=== PATIENT | male | born 1970 | race African-American/Black ===

== ENCOUNTER 2018-09-20 19:34 | Inpatient (IN) ==
[2018-09-20] MEDS ORDERED: SODIUM CHLORIDE 0.9% 500 ML IV STA (19:59)
[2018-09-20 20:46] LABS: Basophils % 0.3 % (0.0-0.8); Eosinophils # 0.1 10*3/uL (0.0-0.87); Eosinophils % 0.8 % (0.00-10.9); Hemoglobin 13.4 GM/DL (14.0-18.0); Immature Granulocytes % 0.6 %; Immature Granulocytes Absolute 0.07 #; Lymphocytes % 16.9 % (21.2-54.2); Mean Corpuscular HGB Conc 33.5 GM/DL (32-36); Mean Corpuscular Hemoglobin 29 PG (27-34); Mean Corpuscular Volume 85.8 FL (87-102); Monocytes # 0.8 10*3/uL (0.11-0.8); Monocytes % 6.5 % (1.7-12.7); Neutrophils # 8.9 10*3/uL (1.4-7.4); Neutrophils % 74.9 % (38.7-73.9); Platelet Count 277 T/CUMM (130-400); Red Blood Count 4.66 MC/CUMM (3.8-5.5); Red Cell Distribution Width 13.1 % (9.3-17.3); White Blood Count 11.8 T/CUMM (4-12)
[2018-09-20 21:08] LABS: Alanine Aminotransferase 46 U/L (16-61); Albumin 3.6 G/DL (3.4-5.0); Alkaline Phosphatase 80 U/L (45-117); Aspartate Amino Transferase 95 U/L (0-37); Bilirubin,Total < 0.39 MG/DL (0.2-1.0); Blood Urea Nitrogen 9 MG/DL (7-18); Calcium 9.1 MG/DL (8.5-10.1); Glucose 137 MG/DL (74-106); Osmolality,Calculated 275.7 MOS/KG (273-304); Potassium 3.8 MMOL/L (3.5-5.1); Sodium 138 MMOL/L (136-145); Total Protein 8.2 G/DL (6.4-8.3); Troponin I 0.036 NG/ML (0.00-0.045)
[2018-09-20 21:48] LABS: Apearance,Urine CLEAR (Clear); Bacteria,Urine Occasional /HPF (Few); Bilirubin,Urine Negative (Negative); Blood, Urine Small mg/dL (Negative); Glucose,Urine (UA) Negative (Negative); Ketones,Urine Negative (Negative); Mucus,Urine Occasional /LPF (Occasional); Nitrite,Urine Negative (Negative); Protein,Urine 100 MG/DL; RBC,Urine 2 /HPF (0-4); Squamous Epithelial Cell,Urine Occasional /HPF (0-10); Urine Color Yellow (Yellow); Urine Specific Gravity 1.011 (1.001-1.035); Urine Urobilinogen < 2.0 EU/DL (0.2-1.0); WBC,Urine 2 /HPF (0-6)
[2018-09-20] MEDS ORDERED: ONDANSETRON 4 MG/2 ML VIAL IV STA (21:59)
[2018-09-20] MEDS ORDERED: HYDROmorphone 2 MG/1 ML VIAL IV ONE (21:59)
[2018-09-20 22:15] LABS: Barbiturates Screen,Urine Negative (Negative); Benzodiazepines Screen,Urine Negative (Negative); Cannabinoid Screen,Urine Negative (Negative); Opiate Screen,Urine Negative (Negative); Phencyclidine Screen,Urine Negative (Negative)
[2018-09-20] MEDS ORDERED: ONDANSETRON 4 MG/2 ML VIAL IV PRN (23:10)
[2018-09-20] MEDS ORDERED: ENOXAPARIN 40 MG/0.4 ML SYRINGE SUBCUT SCH (23:30)
[2018-09-21] MEDS ORDERED: ENOXAPARIN 40 MG/0.4 ML SYRINGE ONE (00:55)
[2018-09-21] MEDS: ACETAMINOPHEN 325 MG TABLET PO PRN (01:15)
[2018-09-21] MEDS: SODIUM CHLORIDE 0.9% 1,000 ML IV SCH ×3 (01:15→21:10)
[2018-09-21 04:04] LABS: Basophils % 0.1 % (0.0-0.8); Eosinophils % 0.2 % (0.00-10.9); Hematocrit 38.9 VOL% (42.0-52.0); Immature Granulocytes % 0.3 %; Immature Granulocytes Absolute 0.05 #; Lymphocytes # 2.1 10*3/uL (1.4-4.0); Lymphocytes % 14.6 % (21.2-54.2); Mean Corpuscular HGB Conc 33.4 GM/DL (32-36); Mean Corpuscular Hemoglobin 29 PG (27-34); Mean Corpuscular Volume 87.2 FL (87-102); Mean Platelet Volume 9.8 FL (9.6-12.0); Monocytes # 1.3 10*3/uL (0.11-0.8); Monocytes % 8.8 % (1.7-12.7); Neutrophils # 10.9 10*3/uL (1.4-7.4); Platelet Count 270 T/CUMM (130-400); Red Blood Count 4.46 MC/CUMM (3.8-5.5); Red Cell Distribution Width 13.3 % (9.3-17.3); White Blood Count 14.4 T/CUMM (4-12)
[2018-09-21 04:24] LABS: % Iron Saturation 12.4 % (18-50); Ferritin 263.8 ng/ml (26-388)
[2018-09-21 04:31] LABS: Calcium 8.8 MG/DL (8.5-10.1); Osmolality,Calculated 274.7 MOS/KG (273-304); Potassium 4.4 MMOL/L (3.5-5.1); Risk Ratio 4.66; Thyroid Stimulating Hormone 0.573 uIU/ml (0.358-3.74); VLDL CHOLESTEROL 24.4 MG/DL
[2018-09-21 04:40] LABS: Folate 9.1 NG/ML (5.4-24.0); Vitamin B12 854 PG/ML (211-911)
[2018-09-21 05:16] LABS: Sedimentation Rate-Westergren 38 MM/HR (0-15)
[2018-09-21] MEDS: DOCUSATE SODIUM 100 MG CAPSULE PO SCH ×2 (08:39→21:10)
[2018-09-21] MEDS: oxyCODONE ER 10 MG TABLET PO PRN ×2 (09:29→21:10)
[2018-09-21 10:20] LABS: Hemoglobin A1 (Alkaline) 60.8 % (96.5-98.5); Hemoglobin A2 (Alkaline) 3.1 % (1.5-3.5)
[2018-09-21 10:21] LABS: Hemoglobin S (Alkaline) 36.1 %
[2018-09-22 05:31] LABS: Basophils % 0.1 % (0.0-0.8); Eosinophils % 0.2 % (0.00-10.9); Hematocrit 38.2 VOL% (42.0-52.0); Hemoglobin 12.7 GM/DL (14.0-18.0); Immature Granulocytes % 0.3 %; Immature Granulocytes Absolute 0.04 #; Lymphocytes # 2.1 10*3/uL (1.4-4.0); Lymphocytes % 17.5 % (21.2-54.2); Mean Corpuscular HGB Conc 33.2 GM/DL (32-36); Mean Corpuscular Hemoglobin 29 PG (27-34); Mean Corpuscular Volume 86.4 FL (87-102); Mean Platelet Volume 10.3 FL (9.6-12.0); Monocytes # 0.9 10*3/uL (0.11-0.8); Monocytes % 7.5 % (1.7-12.7); Neutrophils # 9.1 10*3/uL (1.4-7.4); Neutrophils % 74.4 % (38.7-73.9); Platelet Count 281 T/CUMM (130-400); Red Blood Count 4.42 MC/CUMM (3.8-5.5); Red Cell Distribution Width 13.2 % (9.3-17.3); White Blood Count 12.2 T/CUMM (4-12)
[2018-09-22 05:50] LABS: Calcium 8.8 MG/DL (8.5-10.1); Osmolality,Calculated 269.8 MOS/KG (273-304)
[2018-09-22] MEDS: DOCUSATE SODIUM 100 MG CAPSULE PO SCH ×2 (08:54→20:29)
[2018-09-22] MEDS: SODIUM CHLORIDE 0.9% 1,000 ML IV SCH (20:30)
[2018-09-22] MEDS: ACETAMINOPHEN 325 MG TABLET PO PRN (23:33)
[2018-09-23] MEDS: SODIUM CHLORIDE 0.9% 1,000 ML IV SCH ×3 (05:15→23:35)
[2018-09-23] MEDS: ACETAMINOPHEN 325 MG TABLET PO PRN (05:50)
[2018-09-23] MEDS ORDERED: LEVOFLOXACIN INJ 500 MG in PREMIX 1 EACH IV SCH (07:30)
[2018-09-23 08:17] LABS: Apearance,Urine CLEAR (Clear); Bilirubin,Urine Negative (Negative); Blood, Urine Negative (Negative); Glucose,Urine (UA) Negative (Negative); Ketones,Urine Negative (Negative); Nitrite,Urine Negative (Negative); Protein,Urine 30 MG/DL; Urine Color Yellow (Yellow); Urine Specific Gravity 1.013 (1.001-1.035); Urine Urobilinogen < 2.0 EU/DL (0.2-1.0); WBC,Urine 1 /HPF (0-6)
[2018-09-23] MEDS: DOCUSATE SODIUM 100 MG CAPSULE PO SCH ×2 (09:50→23:34)
[2018-09-23] MEDS: AZITHROMYCIN 250 MG TABLET PO SCH (17:06)
[2018-09-23] MEDS: levETIRAcetam 500 MG TABLET PO SCH (23:35)
[2018-09-24] MEDS: ACETAMINOPHEN 325 MG TABLET PO PRN ×2 (01:35→19:10)
[2018-09-24 03:41] LABS: Basophils % 0.2 % (0.0-0.8); Eosinophils # 0.1 10*3/uL (0.0-0.87); Eosinophils % 0.4 % (0.00-10.9); Hematocrit 40.3 VOL% (42.0-52.0); Hemoglobin 13.8 GM/DL (14.0-18.0); Immature Granulocytes % 0.5 %; Immature Granulocytes Absolute 0.06 #; Lymphocytes # 2.6 10*3/uL (1.4-4.0); Mean Corpuscular HGB Conc 34.2 GM/DL (32-36); Mean Corpuscular Hemoglobin 29 PG (27-34); Mean Corpuscular Volume 84.3 FL (87-102); Mean Platelet Volume 9.7 FL (9.6-12.0); Monocytes # 1.2 10*3/uL (0.11-0.8); Monocytes % 9.4 % (1.7-12.7); Neutrophils # 9.1 10*3/uL (1.4-7.4); Neutrophils % 69.5 % (38.7-73.9); Platelet Count 344 T/CUMM (130-400); Red Blood Count 4.78 MC/CUMM (3.8-5.5); Red Cell Distribution Width 12.9 % (9.3-17.3)
[2018-09-24 04:04] LABS: Calcium 9.2 MG/DL (8.5-10.1); Osmolality,Calculated 267.2 MOS/KG (273-304); Potassium 3.5 MMOL/L (3.5-5.1)
[2018-09-24 11:08] LABS: Glucose,CSF 79 MG/DL (40-70)
[2018-09-24] MEDS: DOCUSATE SODIUM 100 MG CAPSULE PO SCH (11:43)
[2018-09-24] MEDS: levETIRAcetam 500 MG TABLET PO SCH (11:44)
[2018-09-24] MEDS: AZITHROMYCIN 250 MG TABLET PO SCH (11:44)
[2018-09-24] MEDS: cefTRIAXone 1,000 MG in SYRINGE 1 EACH IV SCH ×2 (11:50→14:11)
[2018-09-24 12:46] LABS: Lymphocytes,CSF 51 %; Monocytes,CSF 4 %; Neutrophils,CSF 44 %
[2018-09-24 12:54] LABS: Appearance,CSF Clear; Red Blood Cell,CSF 28 C/CUMM; White Blood Cell,CSF 244 C/CUMM
[2018-09-24] MEDS ORDERED: cefTRIAXone 1,000 MG VIAL IM SCH (13:30)
[2018-09-24] MEDS: SODIUM CHLORIDE 0.9% 1,000 ML IV SCH (14:10)
[2018-09-24] MEDS: ACYCLOVIR INJ 1,000 MG in SODIUM CHLORIDE 0.9% 250 ML IV SCH (14:21)
[2018-09-25] MEDS: ACETAMINOPHEN 325 MG TABLET PO PRN ×3 (01:34→18:25)
[2018-09-25] MEDS: levETIRAcetam 500 MG TABLET PO SCH ×3 (01:36→20:48)
[2018-09-25] MEDS: DOCUSATE SODIUM 100 MG CAPSULE PO SCH ×3 (01:36→20:49)
[2018-09-25] MEDS: SODIUM CHLORIDE 0.9% 1,000 ML IV SCH ×2 (01:36→06:25)
[2018-09-25] MEDS: ACYCLOVIR INJ 1,000 MG in SODIUM CHLORIDE 0.9% 250 ML IV SCH ×3 (04:03→20:49)
[2018-09-25] MEDS: AZITHROMYCIN 250 MG TABLET PO SCH (09:59)
[2018-09-26] MEDS: ACETAMINOPHEN 325 MG TABLET PO PRN ×4 (03:10→21:30)
[2018-09-26] MEDS: ACYCLOVIR INJ 1,000 MG in SODIUM CHLORIDE 0.9% 250 ML IV SCH (03:11)
[2018-09-26 06:25] LABS: Basophils % 0.3 % (0.0-0.8); Eosinophils # 0.1 10*3/uL (0.0-0.87); Eosinophils % 0.7 % (0.00-10.9); Hemoglobin 13.5 GM/DL (14.0-18.0); Immature Granulocytes % 0.4 %; Immature Granulocytes Absolute 0.05 #; Lymphocytes # 2.6 10*3/uL (1.4-4.0); Lymphocytes % 22.9 % (21.2-54.2); Mean Corpuscular HGB Conc 33.8 GM/DL (32-36); Mean Corpuscular Hemoglobin 28 PG (27-34); Mean Corpuscular Volume 83.5 FL (87-102); Mean Platelet Volume 9.4 FL (9.6-12.0); Monocytes # 1.1 10*3/uL (0.11-0.8); Monocytes % 9.5 % (1.7-12.7); Neutrophils # 7.4 10*3/uL (1.4-7.4); Neutrophils % 66.2 % (38.7-73.9); Platelet Count 340 T/CUMM (130-400); Red Blood Count 4.79 MC/CUMM (3.8-5.5); Red Cell Distribution Width 12.8 % (9.3-17.3); White Blood Count 11.2 T/CUMM (4-12)
[2018-09-26 06:41] LABS: Calcium 8.8 MG/DL (8.5-10.1); Osmolality,Calculated 267.2 MOS/KG (273-304); Potassium 3.6 MMOL/L (3.5-5.1)
[2018-09-26] MEDS: levETIRAcetam 500 MG TABLET PO SCH ×2 (09:01→21:26)
[2018-09-26] MEDS: DOCUSATE SODIUM 100 MG CAPSULE PO SCH ×2 (09:01→21:26)
[2018-09-26] MEDS: AZITHROMYCIN 250 MG TABLET PO SCH (09:01)
[2018-09-26] MEDS: SODIUM CHLORIDE 0.9% 1,000 ML IV SCH ×3 (09:02→21:31)
[2018-09-26] MEDS ORDERED: ACYCLOVIR INJ 750 MG in SODIUM CHLORIDE 0.9% 250 ML IV SCH (12:00)
[2018-09-26 17:17] LABS: HIV Antigen/Antibody Result Nonreactive (Nonreactive)
[2018-09-26 18:26] LABS: Apearance,Urine CLEAR (Clear); Bilirubin,Urine Negative (Negative); Blood, Urine Negative (Negative); Glucose,Urine (UA) Negative (Negative); Ketones,Urine Negative (Negative); Nitrite,Urine Negative (Negative); Protein,Urine Negative; Urine Color Straw (Yellow); Urine Specific Gravity 1.005 (1.001-1.035); Urine Urobilinogen < 2.0 EU/DL (0.2-1.0)
[2018-09-27] MEDS: levETIRAcetam 500 MG TABLET PO SCH (08:18)
[2018-09-27] MEDS: SODIUM CHLORIDE 0.9% 1,000 ML IV SCH (08:18)
[2018-09-27] MEDS: DOCUSATE SODIUM 100 MG CAPSULE PO SCH (08:18)
[2018-09-27] MEDS: ACETAMINOPHEN 325 MG TABLET PO PRN (08:21)
[2018-09-27 14:29] VITALS: BP 120/62
== END 2018-09-27 14:29 | disposition home or self-care (01) | DRG 75 ==
LOC: EDBD → EDUNIT# → N.EDINP 19:34 → N.ED 19:34 → N.TELES 09-21 00:17 → SUATTDRO 09-23 07:14 → N.5E 09-25 10:44
PROVIDERS: ADMIT Hospitalist; ATTEND Internal Medicine

== ENCOUNTER 2021-03-30 17:45 | Inpatient (IN) ==
[2021-03-30] MEDS ORDERED: DEXAMETHASONE 4 MG/1 ML VIAL IM STA (23:23)
[2021-03-30] MEDS ORDERED: ONDANSETRON 4 MG/2 ML VIAL IV STA (23:23)
[2021-03-30] MEDS ORDERED: cefTRIAXone 1,000 MG in SODIUM CHLORIDE 0.9% 100 ML IV STA (23:23)
[2021-03-30 23:36] LABS: Hematocrit 49.6 VOL% (42.0-52.0); Hemoglobin 16.4 GM/DL (14.0-18.0); Immature Granulocytes % 0.4 %; Immature Granulocytes Absolute 0.02 #; Lymphocytes # 1.8 10*3/uL (1.4-4.0); Mean Corpuscular HGB Conc 33.1 GM/DL (32-36); Mean Corpuscular Volume 86.3 FL (87-102); Mean Platelet Volume 10.3 FL (9.6-12.0); Monocytes % 6.8 % (1.7-12.7); Neutrophils % 58.8 % (38.7-73.9); Platelet Count 187 T/CUMM (130-400); Red Blood Count 5.75 MC/CUMM (3.8-5.5); Red Cell Distribution Width 14.1 % (9.3-17.3); White Blood Count 5.2 T/CUMM (4-12)
[2021-03-30 23:49] LABS: PT Patient Result 11.6 SECS (10.5-12.0)
[2021-03-30] MEDS ORDERED: SODIUM CHLORIDE 0.9% 500 ML IV STA (23:52)
[2021-03-30 23:57] LABS: Albumin 3.4 G/DL (3.4-5.0); Bilirubin,Total 0.7 MG/DL (0.20-1.00); Osmolality,Calculated 267.7 MOS/KG (273-304); Potassium 4.2 MMOL/L (3.5-5.1); Total Protein 7.6 G/DL (6.4-8.2)
[2021-03-31] MEDS ORDERED: ONDANSETRON 4 MG/2 ML VIAL IV PRN (01:54)
[2021-03-31] MEDS ORDERED: AZITHROMYCIN INJ 500 MG in SODIUM CHLORIDE 0.9% 250 ML IV ONE (01:54)
[2021-03-31] MEDS ORDERED: MELATONIN 3 MG TABLET PO PRN ×2 (01:54→12:05)
[2021-03-31] MEDS ORDERED: GLUCAGON 1 MG VIAL IM PRN (01:54)
[2021-03-31] MEDS ORDERED: DEXTROSE 50% 25 GM/50 ML VIAL IV PRN (01:54)
[2021-03-31] MEDS ORDERED: BISACODYL 5 MG TABLET PO PRN (01:54)
[2021-03-31] MEDS ORDERED: DOCUSATE SODIUM 100 MG CAPSULE PO PRN (01:54)
[2021-03-31] MEDS: ENOXAPARIN 40 MG/0.4 ML SYRINGE SUBCUT SCH (04:30)
[2021-03-31] MEDS: SODIUM CHLORIDE 0.9% 1,000 ML IV SCH ×2 (04:32→14:06)
[2021-03-31 07:23] LABS: Albumin 2.6 G/DL (3.4-5.0); Bilirubin,Total 0.4 MG/DL (0.20-1.00); Calcium 7.5 MG/DL (8.5-10.1); Osmolality,Calculated 275.5 MOS/KG (273-304); Potassium 4.7 MMOL/L (3.5-5.1); Total Protein 7.3 G/DL (6.4-8.2)
[2021-03-31] MEDS: INSULIN REGULAR 100 UNIT/ML SUBCUT SCH ×4 (08:06→22:57)
[2021-03-31] MEDS ORDERED: DEXAMETHASONE 4 MG/1 ML VIAL IV SCH (09:00)
[2021-03-31] MEDS ORDERED: ZINC GLUCONATE 50 MG TABLET PO SCH (09:00)
[2021-03-31] MEDS ORDERED: CHOLECALCIFEROL 1,000 UNIT TABLET PO SCH (09:00)
[2021-03-31] MEDS: FAMOTIDINE 20 MG TABLET PO SCH ×2 (09:06→22:58)
[2021-03-31] MEDS: ASCORBIC ACID 500 MG TABLET PO SCH ×2 (09:06→22:58)
[2021-03-31] MEDS: CETIRIZINE 10 MG TABLET PO SCH (09:06)
[2021-03-31] MEDS: IVERMECTIN 3 MG TABLET PO SCH (09:06)
[2021-03-31] MEDS: DEXAMETHASONE 4 MG/1 ML VIAL IV SCH ×3 (14:15→23:16)
[2021-03-31] MEDS: cefTRIAXone 1,000 MG in SODIUM CHLORIDE 0.9% 100 ML IV SCH (14:19)
[2021-03-31] MEDS: ALBUTEROL INHALER 18 GM INH SCH ×2 (14:37→22:59)
[2021-04-01] MEDS: ALBUTEROL INHALER 18 GM INH SCH ×4 (02:33→20:58)
[2021-04-01] MEDS: ENOXAPARIN 40 MG/0.4 ML SYRINGE SUBCUT SCH (03:00)
[2021-04-01] MEDS: DEXAMETHASONE 4 MG/1 ML VIAL IV SCH ×4 (03:05→20:59)
[2021-04-01] MEDS: SODIUM CHLORIDE 0.9% 1,000 ML IV SCH ×2 (03:15→14:07)
[2021-04-01 05:28] LABS: Basophils % 0.1 % (0.0-0.8); Hematocrit 42.4 VOL% (42.0-52.0); Hemoglobin 14.5 GM/DL (14.0-18.0); Immature Granulocytes % 0.4 %; Immature Granulocytes Absolute 0.03 #; Lymphocytes # 1.1 10*3/uL (1.4-4.0); Lymphocytes % 14.7 % (21.2-54.2); Mean Corpuscular HGB Conc 34.2 GM/DL (32-36); Mean Corpuscular Volume 85.8 FL (87-102); Mean Platelet Volume 10.9 FL (9.6-12.0); Monocytes % 5.4 % (1.7-12.7); Neutrophils % 79.4 % (38.7-73.9); Platelet Count 175 T/CUMM (130-400); Red Blood Count 4.94 MC/CUMM (3.8-5.5); Red Cell Distribution Width 14.1 % (9.3-17.3); White Blood Count 7.3 T/CUMM (4-12)
[2021-04-01 06:01] LABS: Albumin 2.5 G/DL (3.4-5.0); Bilirubin,Total 0.6 MG/DL (0.20-1.00); Calcium 7.7 MG/DL (8.5-10.1); Osmolality,Calculated 279.1 MOS/KG (273-304); Potassium 4.4 MMOL/L (3.5-5.1); Total Protein 6.9 G/DL (6.4-8.2)
[2021-04-01] MEDS ORDERED: AZITHROMYCIN 250 MG TABLET PO SCH (09:00)
[2021-04-01] MEDS: CHOLECALCIFEROL 5,000 UNIT TABLET PO SCH (10:50)
[2021-04-01] MEDS: ZINC GLUCONATE 50 MG TABLET PO SCH (10:51)
[2021-04-01] MEDS: FAMOTIDINE 20 MG TABLET PO SCH ×2 (10:51→20:59)
[2021-04-01] MEDS: INSULIN REGULAR 100 UNIT/ML SUBCUT SCH ×4 (10:52→20:58)
[2021-04-01] MEDS: ASCORBIC ACID 500 MG TABLET PO SCH ×2 (10:52→20:59)
[2021-04-01] MEDS: CETIRIZINE 10 MG TABLET PO SCH (10:53)
[2021-04-01] MEDS: cefTRIAXone 1,000 MG in SODIUM CHLORIDE 0.9% 100 ML IV SCH (14:08)
[2021-04-01] MEDS: AZITHROMYCIN INJ 500 MG in SODIUM CHLORIDE 0.9% 250 ML IV SCH (15:31)
[2021-04-01] MEDS: IVERMECTIN 3 MG TABLET PO SCH (18:23)
[2021-04-01 22:01] LABS: ABG Base Excess 0.2 MMOL/L (-2.5-2.5); ABG HCO3 24.4 MMOL/L (20-26); ABG PCO2 40.9 MM HG (35-48); ABG PH 7.395 (7.35-7.45); ABG PO2 65.9 MM HG (80-95); ABG TCO2 21.6 MMOL/L (23-27)
[2021-04-01] MEDS: ACETAMINOPHEN 325 MG TABLET PO PRN (23:59)
[2021-04-02] MEDS ORDERED: ASPIRIN 325 MG TABLET ONE (01:02)
[2021-04-02 01:42] LABS: Hematocrit 41.6 VOL% (42.0-52.0); Hemoglobin 13.9 GM/DL (14.0-18.0); Immature Granulocytes % 0.4 %; Immature Granulocytes Absolute 0.04 #; Lymphocytes # 0.9 10*3/uL (1.4-4.0); Lymphocytes % 7.9 % (21.2-54.2); Mean Corpuscular HGB Conc 33.4 GM/DL (32-36); Mean Corpuscular Volume 86.7 FL (87-102); Mean Platelet Volume 10.2 FL (9.6-12.0); Monocytes % 5.2 % (1.7-12.7); Neutrophils % 86.5 % (38.7-73.9); Platelet Count 204 T/CUMM (130-400); White Blood Count 10.7 T/CUMM (4-12)
[2021-04-02] MEDS: ZALEPLON 5 MG CAPSULE PO PRN ×2 (01:58→23:57)
[2021-04-02 02:04] LABS: Albumin 2.3 G/DL (3.4-5.0); Bilirubin,Total 0.4 MG/DL (0.20-1.00); Calcium 7.8 MG/DL (8.5-10.1); Ferritin 1217.3 ng/ml (26-388); Potassium 4.9 MMOL/L (3.5-5.1); Total Protein 6.6 G/DL (6.4-8.2)
[2021-04-02] MEDS: ALBUTEROL INHALER 18 GM INH SCH ×4 (02:12→19:52)
[2021-04-02] MEDS: DEXAMETHASONE 4 MG/1 ML VIAL IV SCH ×3 (04:00→15:53)
[2021-04-02] MEDS: SODIUM CHLORIDE 0.9% 1,000 ML IV SCH ×2 (04:46→15:33)
[2021-04-02 05:11] LABS: ABG Base Excess 0.7 MMOL/L (-2.5-2.5); ABG HCO3 25.9 MMOL/L (20-26); ABG Oxygen Saturation 92.4 % (95-100); ABG PCO2 43.3 MM HG (35-48); ABG PH 7.394 (7.35-7.45); ABG TCO2 27.2 MMOL/L (23-27)
[2021-04-02] MEDS: INSULIN REGULAR 100 UNIT/ML SUBCUT SCH ×4 (12:13→23:52)
[2021-04-02] MEDS: ENOXAPARIN 40 MG/0.4 ML SYRINGE SUBCUT SCH (12:45)
[2021-04-02] MEDS: FAMOTIDINE 20 MG TABLET PO SCH ×2 (12:49→21:54)
[2021-04-02] MEDS: ASCORBIC ACID 500 MG TABLET PO SCH ×2 (12:49→21:54)
[2021-04-02] MEDS: CETIRIZINE 10 MG TABLET PO SCH (12:50)
[2021-04-02] MEDS: AZITHROMYCIN INJ 500 MG in SODIUM CHLORIDE 0.9% 250 ML IV SCH (12:50)
[2021-04-02] MEDS: ZINC GLUCONATE 50 MG TABLET PO SCH (12:50)
[2021-04-02] MEDS: IVERMECTIN 3 MG TABLET PO SCH (15:53)
[2021-04-02] MEDS: CHOLECALCIFEROL 5,000 UNIT TABLET PO SCH (18:07)
[2021-04-02] MEDS: cefTRIAXone 1,000 MG in SODIUM CHLORIDE 0.9% 100 ML IV SCH (21:00)
[2021-04-03 00:49] LABS: ABG Oxygen Saturation 82.3 % (95-100); ABG PH 7.436 (7.35-7.45); ABG PO2 49.5 MM HG (80-95); ABG TCO2 26.2 MMOL/L (23-27)
[2021-04-03] MEDS: ALBUTEROL INHALER 18 GM INH SCH ×4 (01:17→19:35)
[2021-04-03] MEDS ORDERED: CLORAZEPATE 3.75 MG TABLET PO PRN (01:33)
[2021-04-03] MEDS: SODIUM CHLORIDE 0.9% 1,000 ML IV SCH ×3 (03:17→13:00)
[2021-04-03 07:03] LABS: Calcium 8.3 MG/DL (8.5-10.1); Ferritin 2166.5 ng/ml (26-388); Potassium 5.1 MMOL/L (3.5-5.1)
[2021-04-03] MEDS: INSULIN REGULAR 100 UNIT/ML SUBCUT SCH ×4 (09:47→17:23)
[2021-04-03] MEDS: ASCORBIC ACID 500 MG TABLET PO SCH ×2 (10:57→21:03)
[2021-04-03] MEDS: ENOXAPARIN 40 MG/0.4 ML SYRINGE SUBCUT SCH (10:57)
[2021-04-03] MEDS: CHOLECALCIFEROL 5,000 UNIT TABLET PO SCH (10:58)
[2021-04-03] MEDS ORDERED: methylPREDNISolone SOD SUC 125 MG/2 ML VIAL IV ONE (12:06)
[2021-04-03] MEDS: AZITHROMYCIN INJ 500 MG in SODIUM CHLORIDE 0.9% 250 ML IV SCH (13:00)
[2021-04-03] MEDS: IVERMECTIN 3 MG TABLET PO SCH (13:01)
[2021-04-03] MEDS ORDERED: LORazepam 2 MG/1 ML VIAL IV PRN (15:07)
[2021-04-03] MEDS ORDERED: LORazepam 2 MG/1 ML VIAL ONE (15:12)
[2021-04-03] MEDS: ZINC GLUCONATE 50 MG TABLET PO SCH (15:18)
[2021-04-03] MEDS: FAMOTIDINE 20 MG TABLET PO SCH ×2 (15:18→21:03)
[2021-04-03] MEDS: CETIRIZINE 10 MG TABLET PO SCH (15:19)
[2021-04-03] MEDS ORDERED: MORPHINE 2 MG/1 ML SYRINGE ONE (15:51)
[2021-04-03] MEDS ORDERED: MORPHINE 2 MG/1 ML SYRINGE IV ONE (15:52)
[2021-04-03 16:04] LABS: ABG Base Excess 1.6 MMOL/L (-2.5-2.5); ABG HCO3 25.3 MMOL/L (20-26); ABG Oxygen Saturation 78.5 % (95-100); ABG PCO2 42.2 MM HG (35-48); ABG PH 7.407 (7.35-7.45); ABG PO2 47.5 MM HG (80-95); ABG TCO2 22.7 MMOL/L (23-27)
[2021-04-03] MEDS ORDERED: ETOMIDATE 20 MG/10 ML VIAL IV ONE ×2 (16:26→16:36)
[2021-04-03] MEDS ORDERED: ROCURONIUM 100 MG/10 ML VIAL IV ONE ×2 (16:28→16:36)
[2021-04-03] MEDS ORDERED: LABETALOL 20 MG/4 ML SYRINGE IV ONE (16:52)
[2021-04-03] MEDS: methylPREDNISolone SOD SUC 125 MG/2 ML VIAL IV SCH (17:09)
[2021-04-03] MEDS: INSULIN GLARGINE 100 UNIT/ML SUBCUT SCH ×2 (17:14→21:04)
[2021-04-03] MEDS: ACETAMINOPHEN 325 MG TABLET PO PRN (17:14)
[2021-04-03 18:01] LABS: ABG Base Excess -0.3 MMOL/L (-2.5-2.5); ABG Oxygen Saturation 88.8 % (95-100); ABG PH 7.328 (7.35-7.45); ABG PO2 67.2 MM HG (80-95); ABG TCO2 23.1 MMOL/L (23-27)
[2021-04-03] MEDS: FUROSEMIDE 40 MG/4 ML VIAL IV SCH (18:03)
[2021-04-03] MEDS: fentaNYL INJ 1,250 MCG in SODIUM CHLORIDE 0.9% 225 ML IV PRN (19:35)
[2021-04-03] MEDS: MIDAZOLAM 100 MG in SODIUM CHLORIDE 0.9% 80 ML IV PRN (19:35)
[2021-04-03] MEDS: levETIRAcetam 250 MG TABLET PO SCH (21:03)
[2021-04-03] MEDS: cefTRIAXone 1,000 MG in SODIUM CHLORIDE 0.9% 100 ML IV SCH (21:55)
[2021-04-04] MEDS: fentaNYL INJ 1,250 MCG in SODIUM CHLORIDE 0.9% 225 ML IV PRN ×4 (00:20→19:40)
[2021-04-04] MEDS: methylPREDNISolone SOD SUC 125 MG/2 ML VIAL IV SCH ×4 (00:21→18:01)
[2021-04-04] MEDS: INSULIN REGULAR 100 UNIT/ML SUBCUT SCH ×4 (00:22→18:01)
[2021-04-04] MEDS: ALBUTEROL INHALER 18 GM INH SCH ×4 (00:22→18:02)
[2021-04-04 00:33] LABS: ABG Base Excess -1.2 MMOL/L (-2.5-2.5); ABG Oxygen Saturation 95.4 % (95-100); ABG PCO2 60.2 MM HG (35-48); ABG PH 7.269 (7.35-7.45); ABG PO2 92.6 MM HG (80-95); ABG TCO2 28.8 MMOL/L (23-27)
[2021-04-04] MEDS: MIDAZOLAM 100 MG in SODIUM CHLORIDE 0.9% 80 ML IV PRN ×2 (04:56→13:30)
[2021-04-04] MEDS: FUROSEMIDE 40 MG/4 ML VIAL IV SCH ×2 (05:04→21:08)
[2021-04-04 05:22] LABS: Basophils % 0.1 % (0.0-0.8); Hematocrit 38.2 VOL% (42.0-52.0); Hemoglobin 12.5 GM/DL (14.0-18.0); Immature Granulocytes % 1.3 %; Immature Granulocytes Absolute 0.17 #; Lymphocytes # 0.8 10*3/uL (1.4-4.0); Lymphocytes % 6.2 % (21.2-54.2); Mean Corpuscular HGB Conc 32.7 GM/DL (32-36); Mean Platelet Volume 10.5 FL (9.6-12.0); Monocytes % 4.9 % (1.7-12.7); Neutrophils % 87.5 % (38.7-73.9); Platelet Count 236 T/CUMM (130-400); Red Blood Count 4.29 MC/CUMM (3.8-5.5); Red Cell Distribution Width 14.6 % (9.3-17.3); White Blood Count 13.2 T/CUMM (4-12)
[2021-04-04 05:23] LABS: ABG HCO3 25.3 MMOL/L (20-26); ABG Oxygen Saturation 94.7 % (95-100); ABG PCO2 54.2 MM HG (35-48); ABG PH 7.287 (7.35-7.45)
[2021-04-04 05:56] LABS: Albumin 1.8 G/DL (3.4-5.0); Bilirubin,Direct 0.13 MG/DL (0.0-0.20); Bilirubin,Indirect 0.5 MG/DL (0.0-1.0); Bilirubin,Total 0.6 MG/DL (0.20-1.00); Total Protein 5.5 G/DL (6.4-8.2)
[2021-04-04 06:08] LABS: Calcium 7.5 MG/DL (8.5-10.1); Ferritin 2944.2 ng/ml (26-388); Osmolality,Calculated 281.4 MOS/KG (273-304); Potassium 5.4 MMOL/L (3.5-5.1)
[2021-04-04] MEDS ORDERED: SODIUM POLYSTYRENE SULFATE 15 GM/60 ML BOTTLE PO STA (07:27)
[2021-04-04] MEDS: ZINC GLUCONATE 50 MG TABLET PO SCH (08:17)
[2021-04-04] MEDS: levETIRAcetam 250 MG TABLET PO SCH ×2 (08:17→21:04)
[2021-04-04] MEDS: CETIRIZINE 10 MG TABLET PO SCH (08:17)
[2021-04-04] MEDS: FAMOTIDINE 20 MG TABLET PO SCH ×2 (08:17→21:04)
[2021-04-04] MEDS: CHOLECALCIFEROL 5,000 UNIT TABLET PO SCH (08:17)
[2021-04-04] MEDS: INSULIN GLARGINE 100 UNIT/ML SUBCUT SCH ×2 (08:17→21:05)
[2021-04-04] MEDS: ASCORBIC ACID 500 MG TABLET PO SCH ×2 (08:17→21:04)
[2021-04-04] MEDS: AZITHROMYCIN INJ 500 MG in SODIUM CHLORIDE 0.9% 250 ML IV SCH (09:38)
[2021-04-04] MEDS: IVERMECTIN 3 MG TABLET PO SCH (09:58)
[2021-04-04] MEDS ORDERED: IVERMECTIN 3 MG TABLET PO SCH (10:00)
[2021-04-04] MEDS: ENOXAPARIN 60 MG/0.6 ML SYRINGE SUBCUT SCH (12:17)
[2021-04-04 14:01] LABS: Calcium 7.6 MG/DL (8.5-10.1)
[2021-04-04] MEDS ORDERED: CISATRACURIUM 10 MG/5 ML VIAL IV ONE (14:57)
[2021-04-04 16:32] LABS: ABG Base Excess -3.7 MMOL/L (-2.5-2.5); ABG HCO3 21.2 MMOL/L (20-26); ABG Oxygen Saturation 91.3 % (95-100); ABG PCO2 64.1 MM HG (35-48); ABG PH 7.211 (7.35-7.45); ABG TCO2 23.5 MMOL/L (23-27)
[2021-04-04] MEDS: cefTRIAXone 1,000 MG in SODIUM CHLORIDE 0.9% 100 ML IV SCH (20:01)
[2021-04-04] MEDS ORDERED: FUROSEMIDE 40 MG/4 ML VIAL IV SCH (22:00)
[2021-04-04 22:05] LABS: HIV Antigen/Antibody Result Nonreactive (Nonreactive)
[2021-04-05] MEDS: MIDAZOLAM 100 MG in SODIUM CHLORIDE 0.9% 80 ML IV PRN (00:10)
[2021-04-05] MEDS: ENOXAPARIN 60 MG/0.6 ML SYRINGE SUBCUT SCH ×2 (00:23→13:15)
[2021-04-05] MEDS: methylPREDNISolone SOD SUC 125 MG/2 ML VIAL IV SCH ×4 (00:23→18:24)
[2021-04-05] MEDS: INSULIN REGULAR 100 UNIT/ML SUBCUT SCH ×4 (00:25→18:22)
[2021-04-05] MEDS: ALBUTEROL INHALER 18 GM INH SCH ×4 (00:26→18:10)
[2021-04-05] MEDS: fentaNYL INJ 1,250 MCG in SODIUM CHLORIDE 0.9% 225 ML IV PRN ×3 (01:05→20:58)
[2021-04-05] MEDS ORDERED: VECURONIUM 10 MG VIAL IV ONE ×2 (03:06→03:13)
[2021-04-05 04:47] LABS: ABG Base Excess -5.8 MMOL/L (-2.5-2.5); ABG HCO3 21.9 MMOL/L (20-26); ABG Oxygen Saturation 97.5 % (95-100); ABG PH 7.234 (7.35-7.45); ABG PO2 118.3 MM HG (80-95); ABG TCO2 23.5 MMOL/L (23-27)
[2021-04-05 05:36] LABS: Basophils % 0.2 % (0.0-0.8); Hematocrit 35.4 VOL% (42.0-52.0); Hemoglobin 11.6 GM/DL (14.0-18.0); Immature Granulocytes % 3.2 %; Immature Granulocytes Absolute 0.48 #; Lymphocytes # 0.7 10*3/uL (1.4-4.0); Lymphocytes % 4.7 % (21.2-54.2); Mean Corpuscular HGB Conc 32.8 GM/DL (32-36); Mean Corpuscular Volume 90.8 FL (87-102); Mean Platelet Volume 10.7 FL (9.6-12.0); Monocytes % 5.6 % (1.7-12.7); NRBC # 0.03 10*3/uL; Neutrophils % 86.3 % (38.7-73.9); Platelet Count 267 T/CUMM (130-400); Red Cell Distribution Width 14.8 % (9.3-17.3)
[2021-04-05] MEDS: ZINC GLUCONATE 50 MG TABLET PO SCH (08:14)
[2021-04-05] MEDS: FUROSEMIDE 40 MG/4 ML VIAL IV SCH ×2 (08:14→20:55)
[2021-04-05] MEDS: AZITHROMYCIN INJ 500 MG in SODIUM CHLORIDE 0.9% 250 ML IV SCH (08:14)
[2021-04-05] MEDS: INSULIN GLARGINE 100 UNIT/ML SUBCUT SCH ×2 (08:14→20:55)
[2021-04-05] MEDS: CHOLECALCIFEROL 5,000 UNIT TABLET PO SCH (08:15)
[2021-04-05] MEDS: CETIRIZINE 10 MG TABLET PO SCH (08:15)
[2021-04-05] MEDS: FAMOTIDINE 20 MG TABLET PO SCH ×2 (08:15→20:55)
[2021-04-05] MEDS: ASCORBIC ACID 500 MG TABLET PO SCH ×2 (08:15→20:54)
[2021-04-05] MEDS: levETIRAcetam 250 MG TABLET PO SCH ×2 (08:16→21:00)
[2021-04-05 08:25] LABS: Calcium 6.9 MG/DL (8.5-10.1); Osmolality,Calculated 301.4 MOS/KG (273-304); Potassium 5.5 MMOL/L (3.5-5.1)
[2021-04-05] MEDS ORDERED: SODIUM POLYSTYRENE SULFATE 15 GM/60 ML BOTTLE PO ONE (08:59)
[2021-04-05 10:22] LABS: Lymphocytes 13 % (20-55); Platelet Estimate Normal; Segmented Neutrophils 83 % (50-85); Total Cells Counted 100
[2021-04-05] MEDS: cefTRIAXone 1,000 MG in SODIUM CHLORIDE 0.9% 100 ML IV SCH (20:20)
[2021-04-06] MEDS: ALBUTEROL INHALER 18 GM INH SCH ×5 (00:30→18:00)
[2021-04-06] MEDS: methylPREDNISolone SOD SUC 125 MG/2 ML VIAL IV SCH ×4 (00:52→17:58)
[2021-04-06] MEDS: ENOXAPARIN 60 MG/0.6 ML SYRINGE SUBCUT SCH (00:53)
[2021-04-06] MEDS: INSULIN REGULAR 100 UNIT/ML SUBCUT SCH ×4 (00:54→17:38)
[2021-04-06] MEDS: fentaNYL INJ 1,250 MCG in SODIUM CHLORIDE 0.9% 225 ML IV PRN ×2 (03:19→09:47)
[2021-04-06] MEDS: MIDAZOLAM 100 MG in SODIUM CHLORIDE 0.9% 80 ML IV PRN (04:09)
[2021-04-06 04:56] LABS: ABG Base Excess -7.4 MMOL/L (-2.5-2.5); ABG HCO3 19.8 MMOL/L (20-26); ABG Oxygen Saturation 98.5 % (95-100); ABG PCO2 47.4 MM HG (35-48); ABG PH 7.239 (7.35-7.45); ABG PO2 183.6 MM HG (80-95); ABG TCO2 21.3 MMOL/L (23-27)
[2021-04-06 05:23] LABS: Basophils % 0.2 % (0.0-0.8); Eosinophils % 0.2 % (0.00-10.9); Hematocrit 33.3 VOL% (42.0-52.0); Hemoglobin 11.1 GM/DL (14.0-18.0); Immature Granulocytes % 6.6 %; Immature Granulocytes Absolute 1.28 #; Lymphocytes # 0.8 10*3/uL (1.4-4.0); Lymphocytes % 4.3 % (21.2-54.2); Mean Corpuscular HGB Conc 33.3 GM/DL (32-36); Mean Platelet Volume 10.6 FL (9.6-12.0); Monocytes % 5.2 % (1.7-12.7); NRBC # 0.07 10*3/uL; Neutrophils % 83.5 % (38.7-73.9); Platelet Count 340 T/CUMM (130-400); Red Blood Count 3.74 MC/CUMM (3.8-5.5); Red Cell Distribution Width 14.8 % (9.3-17.3); White Blood Count 19.3 T/CUMM (4-12)
[2021-04-06 05:53] LABS: Band Neutrophils 2 % (0-10); Hypochromasia Slight; Lymphocytes 3 % (20-55); Microcytosis Slight; Platelet Estimate Adequate; Segmented Neutrophils 90 % (50-85); Total Cells Counted 100
[2021-04-06 05:57] LABS: Albumin 1.9 G/DL (3.4-5.0); Bilirubin,Total 0.4 MG/DL (0.20-1.00); Calcium 7.1 MG/DL (8.5-10.1); Ferritin 1683.1 ng/ml (26-388); Osmolality,Calculated 309.4 MOS/KG (273-304); Potassium 4.4 MMOL/L (3.5-5.1)
[2021-04-06 06:01] LABS: Calcium 6.9 MG/DL (8.5-10.1); Osmolality,Calculated 309.4 MOS/KG (273-304); Potassium 4.4 MMOL/L (3.5-5.1)
[2021-04-06 06:50] LABS: Hepatitis B Core IgM Quant 0.19 Index; Hepatitis B Surface Ag Result Non-Reactive (NonReactive); Hepatitis C Virus Ab Quant 0.05 Index; Hepatitis C Virus Ab Result Non-Reactive (NonReactive)
[2021-04-06] MEDS: SODIUM BICARB INJ 100 MEQ in SODIUM CHLORIDE 0.45% 1,000 ML IV SCH (09:46)
[2021-04-06] MEDS: levETIRAcetam 250 MG TABLET PO SCH ×2 (09:47→21:17)
[2021-04-06] MEDS: INSULIN GLARGINE 100 UNIT/ML SUBCUT SCH ×2 (09:47→21:17)
[2021-04-06] MEDS: ZINC GLUCONATE 50 MG TABLET PO SCH (09:47)
[2021-04-06] MEDS: CETIRIZINE 10 MG TABLET PO SCH (09:48)
[2021-04-06] MEDS: FAMOTIDINE 20 MG TABLET PO SCH (09:48)
[2021-04-06] MEDS: CHOLECALCIFEROL 5,000 UNIT TABLET PO SCH (09:48)
[2021-04-06] MEDS: ASCORBIC ACID 500 MG TABLET PO SCH ×2 (09:48→21:16)
[2021-04-06] MEDS ORDERED: ROCURONIUM 100 MG/10 ML VIAL IV ONE (12:00)
[2021-04-06] MEDS: CISATRACURIUM 200 MG in SODIUM CHLORIDE 0.9% 180 ML IV PRN (12:14)
[2021-04-06] MEDS: fentaNYL INJ 2,500 MCG in SODIUM CHLORIDE 0.9% 75 ML IV PRN ×2 (14:45→20:47)
[2021-04-06] MEDS: cefTRIAXone 1,000 MG in SODIUM CHLORIDE 0.9% 100 ML IV SCH (21:17)
[2021-04-07] MEDS: ALBUTEROL INHALER 18 GM INH SCH ×4 (00:50→21:16)
[2021-04-07] MEDS: INSULIN REGULAR 100 UNIT/ML SUBCUT SCH ×4 (00:57→17:22)
[2021-04-07] MEDS: ENOXAPARIN 60 MG/0.6 ML SYRINGE SUBCUT SCH (00:57)
[2021-04-07] MEDS: methylPREDNISolone SOD SUC 125 MG/2 ML VIAL IV SCH ×4 (00:57→17:23)
[2021-04-07] MEDS: fentaNYL INJ 2,500 MCG in SODIUM CHLORIDE 0.9% 75 ML IV PRN ×4 (03:04→20:10)
[2021-04-07 03:50] LABS: ABG Base Excess -7.1 MMOL/L (-2.5-2.5); ABG HCO3 18.6 MMOL/L (20-26); ABG Oxygen Saturation 96.4 % (95-100); ABG PH 7.217 (7.35-7.45); ABG TCO2 19.4 MMOL/L (23-27)
[2021-04-07] MEDS: MIDAZOLAM 100 MG in SODIUM CHLORIDE 0.9% 80 ML IV PRN ×3 (03:50→23:11)
[2021-04-07 05:01] LABS: Basophils # 0.1 10*3/uL (0.0-0.2); Basophils % 0.3 % (0.0-0.8); Hematocrit 32.6 VOL% (42.0-52.0); Hemoglobin 11.2 GM/DL (14.0-18.0); Immature Granulocytes % 7.7 %; Immature Granulocytes Absolute 1.83 #; Lymphocytes # 1.2 10*3/uL (1.4-4.0); Lymphocytes % 4.9 % (21.2-54.2); Mean Corpuscular HGB Conc 34.4 GM/DL (32-36); Mean Corpuscular Volume 87.6 FL (87-102); Mean Platelet Volume 10.6 FL (9.6-12.0); Monocytes % 5.2 % (1.7-12.7); NRBC # 0.08 10*3/uL; Neutrophils % 81.9 % (38.7-73.9); Platelet Count 357 T/CUMM (130-400); Red Blood Count 3.72 MC/CUMM (3.8-5.5); Red Cell Distribution Width 15.2 % (9.3-17.3); White Blood Count 23.7 T/CUMM (4-12)
[2021-04-07 05:24] LABS: Calcium 6.5 MG/DL (8.5-10.1); Osmolality,Calculated 315.4 MOS/KG (273-304); Potassium 4.5 MMOL/L (3.5-5.1)
[2021-04-07 05:28] LABS: Band Neutrophils 11 % (0-10); Lymphocytes 7 % (20-55); Microcytosis Slight; Platelet Estimate Adequate; Segmented Neutrophils 81 % (50-85); Total Cells Counted 100
[2021-04-07] MEDS: ZINC GLUCONATE 50 MG TABLET PO SCH (08:41)
[2021-04-07] MEDS: levETIRAcetam 250 MG TABLET PO SCH ×2 (08:41→21:15)
[2021-04-07] MEDS: INSULIN GLARGINE 100 UNIT/ML SUBCUT SCH ×2 (08:41→21:16)
[2021-04-07] MEDS: ASCORBIC ACID 500 MG TABLET PO SCH ×2 (08:41→21:15)
[2021-04-07] MEDS: CHOLECALCIFEROL 5,000 UNIT TABLET PO SCH (08:41)
[2021-04-07] MEDS: FAMOTIDINE 20 MG TABLET PO SCH (08:42)
[2021-04-07] MEDS: CETIRIZINE 10 MG TABLET PO SCH (08:42)
[2021-04-07] MEDS: SODIUM BICARB INJ 100 MEQ in SODIUM CHLORIDE 0.45% 1,000 ML IV SCH (08:57)
[2021-04-07] MEDS: CISATRACURIUM 200 MG in SODIUM CHLORIDE 0.9% 180 ML IV PRN (16:16)
[2021-04-07] MEDS: cefTRIAXone 1,000 MG in SODIUM CHLORIDE 0.9% 100 ML IV SCH (20:29)
[2021-04-07 23:01] LABS: Fungitell Quantitative Value 91 pg/mL (<60 pg/mL)
[2021-04-08] MEDS: ALBUTEROL INHALER 18 GM INH SCH ×4 (00:32→21:38)
[2021-04-08] MEDS: INSULIN REGULAR 100 UNIT/ML SUBCUT SCH ×4 (00:46→17:16)
[2021-04-08] MEDS: methylPREDNISolone SOD SUC 125 MG/2 ML VIAL IV SCH ×4 (00:46→17:14)
[2021-04-08] MEDS: ENOXAPARIN 60 MG/0.6 ML SYRINGE SUBCUT SCH (00:47)
[2021-04-08] MEDS: CISATRACURIUM 200 MG in SODIUM CHLORIDE 0.9% 180 ML IV PRN ×4 (01:20→23:52)
[2021-04-08] MEDS: fentaNYL INJ 2,500 MCG in SODIUM CHLORIDE 0.9% 75 ML IV PRN ×5 (02:16→22:45)
[2021-04-08 05:13] LABS: Basophils # 0.1 10*3/uL (0.0-0.2); Basophils % 0.4 % (0.0-0.8); Hematocrit 33.6 VOL% (42.0-52.0); Hemoglobin 11.3 GM/DL (14.0-18.0); Immature Granulocytes % 10.7 %; Lymphocytes # 1.4 10*3/uL (1.4-4.0); Lymphocytes % 4.9 % (21.2-54.2); Mean Corpuscular HGB Conc 33.6 GM/DL (32-36); Mean Corpuscular Volume 88.7 FL (87-102); Mean Platelet Volume 10.3 FL (9.6-12.0); NRBC # 0.11 10*3/uL; Platelet Count 345 T/CUMM (130-400); Red Blood Count 3.79 MC/CUMM (3.8-5.5); Red Cell Distribution Width 15.5 % (9.3-17.3)
[2021-04-08 05:33] LABS: Calcium 6.6 MG/DL (8.5-10.1); Osmolality,Calculated 323.5 MOS/KG (273-304); Potassium 4.7 MMOL/L (3.5-5.1)
[2021-04-08 05:38] LABS: Band Neutrophils 5 % (0-10); Lymphocytes 12 % (20-55); Myelocytes 1 %; Nucleated Red Blood Cells 2 (0-5); Segmented Neutrophils 81 % (50-85); Total Cells Counted 100
[2021-04-08 05:39] LABS: Platelet Estimate Adequate
[2021-04-08 06:03] LABS: ABG HCO3 16.4 MMOL/L (20-26); ABG Oxygen Saturation 90.9 % (95-100); ABG PCO2 53.9 MM HG (35-48); ABG PO2 75.7 MM HG (80-95); ABG TCO2 17.9 MMOL/L (23-27)
[2021-04-08 06:06] LABS: ABG PH 7.161 (7.35-7.45)
[2021-04-08] MEDS ORDERED: SODIUM BICARBONATE 50 MEQ/50 ML VIAL IV ONE ×3 (06:09→21:50)
[2021-04-08] MEDS: SODIUM BICARB INJ 100 MEQ in SODIUM CHLORIDE 0.45% 1,000 ML IV SCH ×2 (06:51→10:59)
[2021-04-08] MEDS: CHOLECALCIFEROL 5,000 UNIT TABLET PO SCH (08:07)
[2021-04-08] MEDS: FAMOTIDINE 20 MG TABLET PO SCH (08:07)
[2021-04-08] MEDS: INSULIN GLARGINE 100 UNIT/ML SUBCUT SCH ×2 (08:07→21:38)
[2021-04-08] MEDS: ASCORBIC ACID 500 MG TABLET PO SCH ×2 (08:07→21:39)
[2021-04-08] MEDS: ZINC GLUCONATE 50 MG TABLET PO SCH (08:07)
[2021-04-08] MEDS: levETIRAcetam 250 MG TABLET PO SCH ×2 (08:07→21:38)
[2021-04-08] MEDS: CETIRIZINE 10 MG TABLET PO SCH (08:08)
[2021-04-08] MEDS: FLUCONAZOLE 40 MG/ML 35 ML/BOTTLE PER TUBE SCH (10:19)
[2021-04-08] MEDS: MIDAZOLAM 100 MG in SODIUM CHLORIDE 0.9% 80 ML IV PRN ×2 (10:52→16:54)
[2021-04-08] MEDS: CLINDAMYCIN INJ 600 MG/50 ML PREMIX IV SCH ×2 (15:12→23:47)
[2021-04-08] MEDS: NOREPINEPHRINE 16 MG in SODIUM CHLORIDE 0.9% 234 ML IV PRN (21:45)
[2021-04-08 22:14] LABS: ABG Base Excess -7.4 MMOL/L (-2.5-2.5); ABG HCO3 17.7 MMOL/L (20-26); ABG Oxygen Saturation 52.7 % (95-100); ABG TCO2 20.9 MMOL/L (23-27)
[2021-04-08 22:17] LABS: ABG PH 7.164 (7.35-7.45)
[2021-04-08 22:18] LABS: ABG PO2 37.5 MM HG (80-95)
[2021-04-09] MEDS: ENOXAPARIN 60 MG/0.6 ML SYRINGE SUBCUT SCH (00:30)
[2021-04-09] MEDS: methylPREDNISolone SOD SUC 125 MG/2 ML VIAL IV SCH ×4 (00:30→18:19)
[2021-04-09] MEDS: INSULIN REGULAR 100 UNIT/ML SUBCUT SCH ×4 (00:30→18:11)
[2021-04-09] MEDS ORDERED: SODIUM CHLORIDE 0.9% 500 ML IV ONE (01:00)
[2021-04-09] MEDS: ALBUTEROL INHALER 18 GM INH SCH ×4 (01:37→23:12)
[2021-04-09] MEDS: MIDAZOLAM 100 MG in SODIUM CHLORIDE 0.9% 80 ML IV PRN ×3 (02:53→22:01)
[2021-04-09] MEDS: fentaNYL INJ 2,500 MCG in SODIUM CHLORIDE 0.9% 75 ML IV PRN ×3 (03:41→13:15)
[2021-04-09 05:05] LABS: ABG Base Excess -11.3 MMOL/L (-2.5-2.5); ABG HCO3 15.5 MMOL/L (20-26); ABG Oxygen Saturation 84.6 % (95-100); ABG PCO2 60.4 MM HG (35-48); ABG PH 7.115 (7.35-7.45); ABG PO2 66.3 MM HG (80-95); Allen Test Positive; Pt O2 Delivery Device Ventilator
[2021-04-09 05:12] LABS: Basophils # 0.1 10*3/uL (0.0-0.2); Basophils % 0.1 % (0.0-0.8); Hematocrit 36.5 VOL% (42.0-52.0); Hemoglobin 12.6 GM/DL (14.0-18.0); Immature Granulocytes % 14.8 %; Immature Granulocytes Absolute 6.18 #; Lymphocytes # 2.1 10*3/uL (1.4-4.0); Lymphocytes % 5.1 % (21.2-54.2); Mean Corpuscular HGB Conc 34.5 GM/DL (32-36); Mean Corpuscular Volume 87.3 FL (87-102); Mean Platelet Volume 10.4 FL (9.6-12.0); Monocytes % 4.9 % (1.7-12.7); NRBC # 0.28 10*3/uL; Neutrophils % 75.1 % (38.7-73.9); Platelet Count 399 T/CUMM (130-400); Red Blood Count 4.18 MC/CUMM (3.8-5.5); Red Cell Distribution Width 15.4 % (9.3-17.3)
[2021-04-09 05:20] LABS: White Blood Count 41.8 T/CUMM (4-12)
[2021-04-09 05:51] LABS: Calcium 6.1 MG/DL (8.5-10.1); Potassium 4.9 MMOL/L (3.5-5.1)
[2021-04-09 05:54] LABS: Band Neutrophils 22 % (0-10); Lymphocytes 5 % (20-55); Metamyelocytes 9 %; Myelocytes 5 %; Nucleated Red Blood Cells 2 (0-5); Platelet Estimate Normal; Segmented Neutrophils 57 % (50-85); Smudge Cells 3+; Total Cells Counted 100
[2021-04-09 05:55] LABS: Anisocytosis 1+; Poikilocytosis Slight; Tear Drop Cells Few
[2021-04-09] MEDS: CLINDAMYCIN INJ 600 MG/50 ML PREMIX IV SCH ×2 (06:31→16:20)
[2021-04-09] MEDS: CISATRACURIUM 200 MG in SODIUM CHLORIDE 0.9% 180 ML IV PRN ×2 (08:10→22:01)
[2021-04-09] MEDS: ASCORBIC ACID 500 MG TABLET PO SCH ×2 (09:07→21:30)
[2021-04-09] MEDS: FLUCONAZOLE 40 MG/ML 35 ML/BOTTLE PER TUBE SCH (09:07)
[2021-04-09] MEDS: FAMOTIDINE 20 MG TABLET PO SCH (09:07)
[2021-04-09] MEDS: CETIRIZINE 10 MG TABLET PO SCH (09:08)
[2021-04-09] MEDS: levETIRAcetam 250 MG TABLET PO SCH ×2 (09:08→21:30)
[2021-04-09] MEDS: CHOLECALCIFEROL 5,000 UNIT TABLET PO SCH (09:08)
[2021-04-09] MEDS: INSULIN GLARGINE 100 UNIT/ML SUBCUT SCH ×2 (09:08→21:30)
[2021-04-09] MEDS: ZINC GLUCONATE 50 MG TABLET PO SCH (09:08)
[2021-04-09] MEDS: SODIUM BICARB INJ 100 MEQ in SODIUM CHLORIDE 0.45% 1,000 ML IV SCH (11:00)
[2021-04-09] MEDS ORDERED: HEPARIN 10,000 UNIT/10 ML VIAL IV ONE (15:15)
[2021-04-09 16:53] LABS: Herpesvirus 7 IgM Ab by IFA <1:20
[2021-04-09] MEDS: fentaNYL INJ 5,000 MCG in SODIUM CHLORIDE 0.9% 150 ML IV PRN (18:32)
[2021-04-09] MEDS: NOREPINEPHRINE 16 MG in SODIUM CHLORIDE 0.9% 234 ML IV PRN (22:01)
[2021-04-09] MEDS ORDERED: POLYVINYL ALCOHOL 1.4% OPH SOLN 15 ML BOTTLE BOTH EYES PRN (23:36)
[2021-04-10] MEDS: ENOXAPARIN 60 MG/0.6 ML SYRINGE SUBCUT SCH (00:30)
[2021-04-10] MEDS: INSULIN REGULAR 100 UNIT/ML SUBCUT SCH ×2 (00:30→06:35)
[2021-04-10] MEDS: methylPREDNISolone SOD SUC 125 MG/2 ML VIAL IV SCH ×2 (00:30→06:35)
[2021-04-10] MEDS: ALBUTEROL INHALER 18 GM INH SCH ×2 (00:45→06:36)
[2021-04-10 04:20] LABS: ABG HCO3 17.5 MMOL/L (20-26); ABG Oxygen Saturation 90.4 % (95-100); ABG PCO2 56.8 MM HG (35-48); ABG PO2 81.2 MM HG (80-95); ABG TCO2 19.3 MMOL/L (23-27); Allen Test Positive; Pt O2 Delivery Device Ventilator
[2021-04-10 04:21] LABS: ABG PH 7.107 (7.35-7.45)
[2021-04-10] MEDS: fentaNYL INJ 5,000 MCG in SODIUM CHLORIDE 0.9% 150 ML IV PRN (04:31)
[2021-04-10 04:54] LABS: Basophils # 0.1 10*3/uL (0.0-0.2); Basophils % 0.4 % (0.0-0.8); Hematocrit 30.5 VOL% (42.0-52.0); Hemoglobin 11.4 GM/DL (14.0-18.0); Immature Granulocytes % 15.7 %; Lymphocytes # 1.1 10*3/uL (1.4-4.0); Lymphocytes % 4.1 % (21.2-54.2); Mean Corpuscular HGB Conc 37.4 GM/DL (32-36); Mean Corpuscular Volume 87.6 FL (87-102); Mean Platelet Volume 10.5 FL (9.6-12.0); Monocytes % 2.1 % (1.7-12.7); NRBC # 0.09 10*3/uL; Neutrophils % 77.7 % (38.7-73.9); Red Blood Count 3.48 MC/CUMM (3.8-5.5); Red Cell Distribution Width 15.3 % (9.3-17.3)
[2021-04-10 04:56] LABS: Platelet Count 267 T/CUMM (130-400); White Blood Count 26.1 T/CUMM (4-12)
[2021-04-10] MEDS: CISATRACURIUM 200 MG in SODIUM CHLORIDE 0.9% 180 ML IV PRN (05:16)
[2021-04-10 05:30] LABS: Band Neutrophils 6 % (0-10); Lymphocytes 2 % (20-55); Metamyelocytes 3 %; Myelocytes 2 %; Promyelocytes 1 %; Segmented Neutrophils 85 % (50-85); Total Cells Counted 100
[2021-04-10 05:31] LABS: Hypochromasia Slight; Microcytosis Slight
[2021-04-10 05:36] LABS: Blood Urea Nitrogen 163 MG/DL (7-18); Carbon Dioxide 16 MMOL/L (21-32); Estimated Glom Filtration Rate 15 ML/MIN; Glucose 244 MG/DL (74-106); Osmolality,Calculated 329.2 MOS/KG (273-304); Sodium 134 MMOL/L (136-145)
[2021-04-10 05:38] LABS: Calcium < 5.0 MG/DL (8.5-10.1); Potassium 6.1 MMOL/L (3.5-5.1)
[2021-04-10] MEDS: MIDAZOLAM 100 MG in SODIUM CHLORIDE 0.9% 80 ML IV PRN (05:59)
[2021-04-10] MEDS: CLINDAMYCIN INJ 600 MG/50 ML PREMIX IV SCH ×2 (06:35)
[2021-04-10] MEDS ORDERED: SODIUM POLYSTYRENE SULFATE 15 GM/60 ML BOTTLE PER TUBE PRN (08:08)
[2021-04-10] MEDS: ZINC GLUCONATE 50 MG TABLET PO SCH (08:09)
[2021-04-10] MEDS: INSULIN GLARGINE 100 UNIT/ML SUBCUT SCH (08:09)
[2021-04-10] MEDS: levETIRAcetam 250 MG TABLET PO SCH (08:09)
[2021-04-10] MEDS: ASCORBIC ACID 500 MG TABLET PO SCH (08:09)
[2021-04-10] MEDS: FAMOTIDINE 20 MG TABLET PO SCH (08:09)
[2021-04-10] MEDS: CETIRIZINE 10 MG TABLET PO SCH (08:09)
[2021-04-10] MEDS: CHOLECALCIFEROL 5,000 UNIT TABLET PO SCH (08:13)
[2021-04-10] MEDS: FLUCONAZOLE 40 MG/ML 35 ML/BOTTLE PER TUBE SCH (08:20)
[2021-04-10] MEDS ORDERED: SODIUM BICARB INJ 150 MEQ in STERILE WATER INJ 1,000 ML IV SCH (08:30)
[2021-04-10 08:56] VITALS: BP 97/55
[2021-04-10] MEDS ORDERED: CALCIUM GLUCONATE 2,000 MG in SODIUM CHLORIDE 0.9% 100 ML IV ONE (09:00)
[2021-04-10] MEDS ORDERED: DEXTROSE 50% 25 GM/50 ML VIAL IV PRN (09:56)
[2021-04-10] MEDS ORDERED: DORNASE ALFA 2.5 MG/2.5 ML VIAL RESP TX SCH (19:00)
[2021-04-10] MEDS ORDERED: MINERAL OIL/PETROLATUM OPH OINT 3.5 GM TUBE BOTH EYES SCH (21:00)
== END 2021-04-10 10:27 | disposition expired | DRG 207 ==
LOC: N.ED 17:45 → SUATTDRO 03-31 01:54 → N.EDINP 03-31 01:54 → N.2E 03-31 17:04 → N.CC 04-03 16:45
PROVIDERS: ADMIT Internal Medicine; ATTEND Internal Medicine